=== PATIENT | male | born 1980 | race Caucasian/White ===

== ENCOUNTER 2019-05-15 21:46 | Emergency (ER) | payer OTHER ==
--- NOTE | 2019-05-15 22:00 | PDOC ---
History of Present Illness - General Chief Complaint: Redness To Affected Area Stated Complaint: RED HOT SWELLING TO RLL Time Seen by Provider: 05/15/19 21:49 - History of Present Illness Initial Comments: This otherwise healthy 39-year-old man presents with a one-day history of redness/swelling/pain and mild tenderness in an area of his right lower leg. Patient does not recall any direct trauma to the area recently (the area was hit by a softball many years ago and has a small area of hyperpigmentation but no other complications of that injury). No other lower leg wound. He has small area of athlete's foot between the toes of his right foot. No other rash No fever/chills. No previous history of cellulitis or skin abscess No history of known infection or colonization by resistant organisms. 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 05/16/19 00:42 Past History - Past Medical History Allergies/Adverse Reactions: Allergies Allergy/AdvReac Type Severity Reaction Status Date / Time No Known Allergies Allergy Verified 05/15/19 21:53 Home Medications: Ambulatory Orders Clindamycin [Cleocin -] 300 mg PO TID #21 capsule 05/15/19 COPD: No Other medical history: DENIES - Suicide/Smoking/Psychosocial Hx Smoking History: Never smoked Have you smoked in the past 12 months: No Information on smoking cessation initiated: No Hx Alcohol Use: No Drug/Substance Use Hx: No Review of Systems - Review of Systems Able to Perform ROS?: Yes Comments:: 12 point review of systems is negative except for what is noted in the history of present illness *Physical Exam - Vital Signs Last Vital Signs Temp Pulse Resp BP Pulse Ox 98.2 F 65 16 150/99 99 05/15/19 21:54 05/15/19 21:54 05/15/19 21:54 05/15/19 21:54 05/15/19 21:54 - Physical Exam Comments: GENERAL:adult male, alert and oriented 3, in no acute distress HEAD: Normal with no signs of trauma. EXTREMITIES: Right lower extremity- 4cm X 3cm oval area erythematous, slightly warm to touch,moderately tender, nonfluctuant anterior distal lower leg No skin breakage or discharge evident No lymphangitic streaking Remainder of extremity exam is normal NEUROLOGICAL: Cranial nerves II through XII grossly intact. Normal speech. No focal neurological deficits MUSCULOSKELETAL: Back non-tender to palpation, no CVA tenderness Medical Decision Making - Medical Decision Making This 39-year-old man, otherwise healthy with no history of cellulitis/abscess presents with localized area of erythema/mild edema/mild tenderness/increased warmth of lower right leg, anterior aspect. No recent trauma to the area. Exam as noted. Clinical presentation most consistent with discrete area of cellulitis without evidence of systemic infection in this patient with no known immunocompromise. 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 Since she is likely colonized by MRSA, the patient has some risk of also being colonized. Therefore, he will be treated with clindamycin with first dose of 300 mg being given here in the ER. patient will return to ER or see his doctor(Stef brooks) if symptoms worsen or evidence of systemic infection develops *DC/Admit/Observation/Transfer Diagnosis at time of Disposition: Cellulitis Qualifiers: Site of cellulitis: extremity Site of cellulitis of extremity: lower extremity Laterality: right Qualified Code(s): L03.115 - Cellulitis of right lower limb - Discharge Dispostion Disposition: HOME Condition at time of disposition: Stable - Prescriptions Prescriptions: Clindamycin [Cleocin -] 300 mg PO TID #21 capsule - Referrals - Patient Instructions Printed Discharge Instructions: Cellulitis Additional Instructions: Clindamycin 300 mg 3 times a day for 1 week Elevate right leg as much as possible Return to ER or follow-up with your doctor if area becomes more painful/swollen or you notice red streaking up your leg Return to ER if you have fever/chills - Post Discharge Activity
[2019-05-15 22:06] VITALS: BP 150/99; PULSE 65; TEMP 98.2; BMI 35.2
[2019-05-15] MEDS ORDERED: CLINDAMYCIN HCL 300 MG CAPSULE PO ONE (22:10)
[2019-05-15] MEDS ORDERED: CLINDAMYCIN HCL 150 MG CAPSULE (FP) ONE (22:11)
== END 2019-05-15 22:22 | disposition home or self-care (01) ==
LOC: FER 21:46
DX: L03.115 Cellulitis of right lower limb (principal)
CPT/HCPCS: 99281-25